=== PATIENT | female | born 1990 | race African-American/Black ===

== ENCOUNTER 2022-05-25 20:50 | Emergency (ER) | payer MEDICAID, OTHER ==
[~2022-05-25] VITALS: Ht 172.7 cm; Wt 63.6 kg
[2022-05-25] MEDS ORDERED: KETOROLAC TROMETH 30 MG/ML 1ML VIAL IM ONE (21:45)
[2022-05-25] MEDS ORDERED: CYCL-837 PO (23:10)
[2022-05-25] MEDS ORDERED: IBUP600T27 PO (23:10)
[2022-05-25 23:28] VITALS: BP 103/78
== END 2022-05-25 23:28 | disposition home or self-care (01) ==
LOC: ER 20:50
DX: S33.5XXA Sprain of ligaments of lumbar spine, initial encounter (principal); X58.XXXA Exposure to other specified factors, initial encounter; Y93.89 Activity, other specified; Y92.89 Other specified places as the place of occurrence of the external cause; Y99.8 Other external cause status
CPT/HCPCS: 72100; 96372; 99283; J1885

== ENCOUNTER 2022-06-30 17:32 | Emergency (ER) | payer MEDICAID ==
[~2022-06-30] VITALS: Ht 172.7 cm; Wt 62.6 kg
[~2022-06-30 17:32] MED LIST: CYCL-837 PO; IBUP600T27 PO
[2022-06-30 17:40] VITALS: BP 128/83
== END 2022-06-30 20:20 | disposition left against medical advice (07) ==
LOC: ER 17:32
DX: M54.50 Low back pain, unspecified (principal); Z53.21 Procedure and treatment not carried out due to patient leaving prior to being seen by health care provider